=== PATIENT | female | born 1980 | race Caucasian/White ===

== ENCOUNTER 2016-07-20 23:42 | Emergency (ER) | payer MEDICAID ==
[2016-07-21 01:06] VITALS: BP 126/85
[2016-07-21 01:26] LABS: Basophils % (Auto) 0.3 % (0.0-1.8); Eosinophils % (Auto) 3.6 % (0.0-4.3); Hematocrit 37.4 % (30.3-42.9); Hemoglobin 12.2 gm/dl (10.1-14.3); Mean Corpuscular HGB Conc 33 % (30-34); Mean Corpuscular Volume 76 fl (79-97); Platelet Count 268 K/mm3 (140-440); Red Blood Count 4.92 M/mm3 (3.65-5.03); Red Cell Distribution Width 13.7 % (13.2-15.2); White Blood Count 15.3 K/mm3 (4.5-11.0)
[2016-07-21 01:31] LABS: Mean Corpuscular Hemoglobin 25 pg (28-32)
[2016-07-21 02:03] LABS: Bacteria,Urine 1+ /HPF (Negative); Bilirubin,Urine NEG (Negative); Blood,Urine NEG (Negative); Ketones,Urine 80 mg/dL (Negative); Leukocyte Esterase,Urine MOD (Negative); Mucus,Urine 2+ /HPF; Nitrite,Urine NEG (Negative); Protein,Urine <15 mg/dL mg/dL (Negative); Urobilinogen,Urine < 2.0 mg/dL (<2.0)
[2016-07-21 02:21] LABS: Anion Gap 20 mmol/L; Blood Urea Nitrogen 11 mg/dL (7-17); Calcium 8.8 mg/dL (8.4-10.2); Carbon Dioxide 22 mmol/L (22-30); Chloride 99.1 mmol/L (98-107); Glucose 95 mg/dL (65-100); Sodium 137 mmol/L (137-145)
== END 2016-07-21 02:10 | disposition left against medical advice (07) ==
LOC: ED 23:42
DX: R10.32 Left lower quadrant pain (principal); R50.9 Fever, unspecified; Z53.21 Procedure and treatment not carried out due to patient leaving prior to being seen by health care provider
CPT/HCPCS: 36415; 80048; 81001; 81025; 85025

== ENCOUNTER 2016-07-22 09:39 | Emergency (ER) | payer MEDICAID ==
[2016-07-22 09:53] VITALS: BP 98/63
[2016-07-22 10:27] LABS: Basophils % (Auto) 0.4 % (0.0-1.8); Eosinophils % (Auto) 5.4 % (0.0-4.3); Hematocrit 35.3 % (30.3-42.9); Hemoglobin 11.5 gm/dl (10.1-14.3); Mean Corpuscular HGB Conc 33 % (30-34); Mean Corpuscular Volume 77 fl (79-97); Platelet Count 263 K/mm3 (140-440); Red Cell Distribution Width 13.6 % (13.2-15.2); White Blood Count 9.8 K/mm3 (4.5-11.0)
[2016-07-22 10:33] LABS: Mean Corpuscular Hemoglobin 25 pg (28-32)
[2016-07-22 10:36] LABS: Alanine Aminotransferase 18 units/L (7-56); Albumin 3.9 g/dL (3.9-5); Albumin/Globulin Ratio 1.2 %; Alkaline Phosphatase 32 units/L (35-129); Anion Gap 19 mmol/L; Blood Urea Nitrogen 10 mg/dL (7-17); Calcium 8.4 mg/dL (8.4-10.2); Carbon Dioxide 20 mmol/L (22-30); Chloride 101.1 mmol/L (98-107); Glucose 119 mg/dL (65-100); Lipase 29 units/L (13-60); Potassium 3.9 mmol/L (3.6-5.0); Sodium 136 mmol/L (137-145); Total Protein 7.2 g/dL (6.3-8.2)
[2016-07-22] MEDS ORDERED: TYLENOL PO ONE (11:29)
[2016-07-22] MEDS ORDERED: TYLENOL ONE (11:30)
--- NOTE | 2016-07-25 05:33 | ED Elopement Review ---
ED Pt Elopement review - Results review Lab results: Laboratory Tests 07/22/16 07/22/16 09:58 09:58 WBC 9.8 RBC 4.60 Hgb 11.5 Hct 35.3 MCV 77 L MCH 25 L MCHC 33 RDW 13.6 Plt Count 263 Lymph % (Auto) 32.2 [place] % (Auto) 4.1 Eos % (Auto) 5.4 H Baso % (Auto) 0.4 Lymph # 3.1 [place] # 0.4 Eos # 0.5 H Baso # 0.0 Seg Neutrophils % 57.9 Seg Neutrophils # 5.7 Sodium 136 L Potassium 3.9 Chloride 101.1 Carbon Dioxide 20 L Anion Gap 19 BUN 10 Creatinine 0.5 L Estimated GFR > 60 BUN/Creatinine Ratio 20.00 Glucose 119 H Calcium 8.4 Total Bilirubin 0.30 AST 13 ALT 18 Alkaline Phosphatase 32 L Total Protein 7.2 Albumin 3.9 Albumin/Globulin Ratio 1.2 Lipase 29 - Call Back decision Pt Call Back Decision: No action required
== END 2016-07-22 21:37 | disposition left against medical advice (07) ==
LOC: ED 09:39
DX: R10.9 Unspecified abdominal pain (principal); Z53.21 Procedure and treatment not carried out due to patient leaving prior to being seen by health care provider
CPT/HCPCS: 36415; 80053; 83690; 85025